=== PATIENT | male | born 1960 ===

== ENCOUNTER 2023-11-15 12:59 | Emergency (ER) | payer MEDICAID, SELFPAY ==
--- NOTE | ~2023-11-15 | CT_ITS ---
EXAMINATION: CT ANGIOGRAM CHEST CLINICAL INFORMATION: Interscapular pain. Status post TOF. COMPARISON: None available. TECHNIQUE: Multiple axial images were obtained through the chest after the administration of 50 mL of Omnipaque 350 intravenous contrast. Extensive vascular post-processing including two-dimensional and three-dimensional reformatted images were created and reviewed on an independent workstation. This CT examination was performed using dose optimization techniques as appropriate, variously including the following: *Automated exposure control *Adjustment of mA and/or kV according to patient size (this includes techniques or standardized protocols for targeted exams where dose is matched to indication/reason for exam; i.e. extremities or head) *Use of iterative reconstruction technique DLP: 223 mGy-cm FINDINGS: Vascular: There is good opacification of thoracic aorta and its branches without aneurysm or dissection. The pulmonary artery is of normal caliber without focal filling defect or narrowing. There is mild coronary artery calcifications. No pericardial effusion seen. Nonvascular: Central trachea and bronchi are widely patent. Thyroid lobes are symmetrical and normal. Small shotty precarinal and pretracheal lymph nodes measure 1.4 cm in short axis on axial image 25/6. The lungs are expanded and clear acute processes. No pulmonary nodule, mass or consolidation seen. Nonspecific groundglass attenuation is seen in both lower lobes. There is no pleural effusion, thickening or calcified pleural plaques. The axilla and the chest wall is unremarkable. Visualized liver, spleen, pancreas and bilateral adrenal glands are unremarkable. Solitary radiopaque gallstone noted. No gross lytic or sclerotic process seen. CT/CT angio chest aorta IMPRESSION: No evidence of aortic aneurysm or dissection. There is a normal three-vessel branching of aortic arch No PE. Clear lungs. Nonspecific precarinal and pretracheal lymph nodes with a short axis measurement of 1.4 cm. Fleischner guidelines were followed. Electronically signed by: Ramón Vail MD 11/15/2023 08:20 PM EDT
--- NOTE | 2023-11-15 13:01 | ECG_ITS ---
Test Reason : chest pain Blood Pressure : / mmHG Vent. Rate : 065 BPM Atrial Rate : 065 BPM P-R Int : 166 ms QRS Dur : 080 ms QT Int : 392 ms P-R-T Axes : -01 055 050 degrees QTc Int : 407 ms Normal sinus rhythm Nonspecific T wave abnormality Abnormal ECG No previous ECGs available Referred By: Generic ED Physician Electronically Signed By:DIAMOND MCDONALD
--- NOTE | 2023-11-15 13:01 | ED_ITS ---
HPI - General Adult General Chief complaint: Chest Pain Stated complaint: Chest pain/Back pain/SOB Time Seen by Provider: 11/15/23 16:36 Source: patient Mode of arrival: ambulatory Limitations: no limitations History of Present Illness ED Provider: yuni RENDON narrative: Patient is 63 years old with history of cardiac surgery at age of 8? Tetralogy of Fallot complaining of sharp pain interscapular area since last night mostly on the left side gets worse on palpation and movement of the left arm and taking deep breath patient has had similar pain for 2 days about 3 months ago does have occasional cough no fever no chills no syncope no palpitation Related Data Previous Rx's ?Medication ?Instructions ?Recorded cyclobenzaprine 10 mg tablet 10 mg PO Q8H #20 tabs 11/15/23 ibuprofen 600 mg tablet 600 mg PO Q6H PRN fever or pain 11/15/23 #30 tabs Allergies Allergy/AdvReac Type Severity Reaction Status Date / Time No Known Allergies Allergy Verified 11/15/23 13:07 Review of Systems 2 Review of Systems: Yes all other systems are reviewed and are negative [facility] Social History Social History Alcohol intake: current Alcohol intake frequency: holidays/special occasions only Smoked in Last 30 Days: Yes Use of substances other than those prescribed or required for medical reasons: No Advance Directives: No Advance Directives Information Provided: Yes Do you have a plan to hurt others: No Plan Physical Exam ED Vital Signs: Vital Signs - 24 hr 11/15/23 13:06 11/15/23 16:19 11/15/23 17:41 Temperature 98.5 F 98.2 F 97.9 F Pulse Rate 69 55 54 Respiratory Rate 18 18 16 Blood Pressure 121/73 150/94 H 142/91 H Pulse Oximetry 96 99 94 Oxygen Delivery Method Room Air Room Air Room Air 11/15/23 19:44 Temperature 98.3 F Pulse Rate 56 Respiratory Rate 18 Blood Pressure 145/78 H Pulse Oximetry 97 Oxygen Delivery Method Room Air BMI result Body Mass Index 20.9 Appearance: Alert. Oriented X3. No acute distress. Eyes: PERRLA, No Nystagmus ENT: Pharynx normal. Oral Mucosa moist Neck: Normal inspection. Neck supple. CVS: Normal heart rate and rhythm. Pulses normal. Tenderness left trapezius muscle area gets worse on left arm movements no bruits Respiratory: No respiratory distress. Equal air entry bilateral, no wheezing/rales/rhonchi Abdomen: Soft and nontender. Bowel sounds are present, no mass palpable, no CVA tenderness Skin: Skin warm and dry. Normal skin color. Normal skin turgor. Extremities: No lower extremity edema. No calf tenderness Neuro: Oriented X 3. No motor deficit. No sensory deficit.No cerebellar signs , cranial nerves II-XII intact Course Course Course Narrative: This is an RME done by NICK Maurice: Additional HPI, ROS, PE not included below will be deferred to primary provider. 63 year old male presenting with chest pain that began last night with a/c back pain. Recently he was working on a vehicle and he pulled a muscle in his back, pt thinks he may have reaggravated this injury last night. He has a history of heart surgery. Denies nausea, vomiting, fever, chills. Plan - EKG, labs Appearance: Alert.? Oriented X3.? No acute cardiopulmonary distress distress.? Head: Normocephalic, atraumatic, no step-offs or deformities Neck: Normal inspection.? Neck supple.? CVS: Pulses normal.? Respiratory: No respiratory distress.? Abdomen: Soft and nontender.? Skin: ? Normal skin color. Extremities: 5/5 strength to bilateral upper and lower extremities Neuro: Oriented X 3.? No motor deficit.? No sensory deficit. Medications Administered Discontinued Medications Generic Name Dose Route Start Last Admin Trade Name Luis Aq PRN Reason Stop Dose Admin Iohexol 100 ml 11/15/23 18:01 11/15/23 18:01 Iohexol 350 Mg/Ml 100 Ml Infus..Btl IV 11/15/23 18:02 70 ml ONCE ONE Administration Morphine Sulfate 4 mg 11/15/23 17:03 11/15/23 17:10 Morphine Sulfate 4 Mg/Ml Cartridge IVPUSH 11/15/23 17:04 4 mg ONCE ONE Administration Protocol Ondansetron HCl 4 mg 11/15/23 17:03 11/15/23 17:09 Ondansetron Hcl 4 Mg/2 Ml Vial IVPUSH 11/15/23 17:04 4 mg ONCE ONE Administration Medical Decision Making Medical Decision Making MDM Narrative: Patient with muscular pain left trapezius area off and on gets worse on palpation and movement CTA negative for aortic dissection/PE discharge patient home on ibuprofen and Flexeril Differential Diagnosis Differential Diagnoses: The differential diagnosis associated with the presentation includes Resection of the aorta/PE/musculoskeletal/pneumothorax Lab Data MDM Lab Attestation statement: I reviewed the patient's lab results. 11/15/23 13:13 11/15/23 13:13 Labs: Lab Results 11/15/23 11/15/23 Range/Units 13:13 16:21 WBC 12.4 H (4.8-10.8) X10*3/uL RBC 4.58 L (4.60-5.80) X10*6/uL Hgb 15.2 (14.0-18.0) g/dl Hct 44.4 (42.0-52.0) % MCV 96.9 (80.0-98.0) fL MCH 33.2 H (27.0-33.0) pg MCHC 34.2 (31.0-36.0) g/dl RDW 12.2 (11.0-16.0) % Plt Count 264 (160-400) X10*3/uL MPV 9.4 (9.4-12.4) fL Immature Gran % (Auto) 0.6 H (0.0-0.4) % Neut % (Auto) 68.2 (45-73) % Lymph % (Auto) 21.6 (20-40) % [place] % (Auto) 9.1 (2-11) % Eos % (Auto) 0.2 (0-4) % Baso % (Auto) 0.3 (0-2) % Lymph # (Auto) 2.7 (1.2-4.9) X10*3/uL [place] # (Auto) 1.1 (0.1-1.2) X10*3/uL Eos # (Auto) 0.0 (0.0-0.4) X10*3/uL Baso # (Auto) 0.0 (0.0-0.2) X10*3/uL Abs Immat Gran (auto) 0.07 H (0.00-0.03) X10*3/uL Absolute Neuts (auto) 8.4 H (2.0-8.3) x10*3/uL Absolute Nucleated RBC 0.000 (0.0-0.012) X10*3/uL Nucleated RBC % (auto) 0.0 (0.0-0.2) /100WBC PT 11.8 (11.1-13.3) SEC INR 1.0 (0.9-1.1) Sodium 136 (135-145) mmol/L Potassium 3.9 (3.3-5.1) mmol/L Chloride 106 (96-108) mmol/L Carbon Dioxide 24 (22-29) mmol/L Anion Gap 10 L (12-20) BUN 11 (9-16) mg/dL Creatinine 0.86 (0.5-1.4) mg/dL Estim Creat Clear Calc 74.0 Estimated GFR > 60 Random Glucose 102 (60-115) mg/dL Calcium 9.4 (8.4-10.2) mg/dL Total Bilirubin 0.7 (0.0-1.0) mg/dL AST 22 (5-37) U/L ALT 15 (0-40) U/L Alkaline Phosphatase 78 (39-117) U/L Troponin I High Sens < 2.7 (<3.5-35.0) ng/L Total Protein 8.1 H (6.5-8.0) g/dL Albumin 3.9 (3.5-5.0) g/dL Urine Color Yellow Urine Appearance Clear Urine pH 6.5 (5.0-9.0) Ur Specific [place] 1.020 (1.005-1.025) Urine Protein Trace (Neg-Trace) mg/dL Urine Glucose (UA) Negative (Negative) mg/dL Urine Ketones Negative (Negative) mg/dL Urine Blood Trace H (Negative) Urine Nitrite Negative (Negative) Ur Leukocyte Esterase Trace H (Negative) Urine RBC 6-10 H (0-2) /HPF Urine WBC 0-5 (0-5) /HPF Ur Squamous Epith Cells 0-2 (0-2) /HPF Urine Bacteria None Seen (None Seen) Hyaline Casts 0-2 (0-2) /LPF Independent Interpretation I performed an independent interpretation of an: EKG and CT Scan Interpretation: Normal sinus rhythm heart rate 65 beats per minute normal interval normal axis no acute ST T wave changes no acute ischemia Radiology Impression Discussion of test interpretation with radiology: I have reviewed the radiologist's reading. Radiologist Impression: CTA chest negative for dissection or PE Discharge Plan Discharge Clinical Impression: Muscle strain of left upper back Patient Disposition: Home, Self-Care Instructions: Thoracic Back Strain (ED) Additional Instructions: Your blood and CT scan negative for any major cardiac issues Pain in the upper back is likely musculoskeletal Take pain medication muscle relaxant as prescribed Follow with PCP Prescriptions: New cyclobenzaprine 10 mg tablet 10 mg PO Q8H Qty: 20 0RF ibuprofen 600 mg tablet 600 mg PO Q6H PRN (Reason: fever or pain) Qty: 30 0RF Print Language: Mauritanian
[2023-11-15 13:06] VITALS: BP 121/73; PULSE 69; RESP 18; TEMP 36.9; O2SAT 96; BMI 20.9
[2023-11-15 13:17] LABS: MANUAL DIFF FLAG NO
[2023-11-15 13:22] LABS: Basophils Percent Auto 0.3 % (0-2); Eosinophils Percent Auto 0.2 % (0-4); Hematocrit 44.4 % (42.0-52.0); Hemoglobin 15.2 g/dl (14.0-18.0); Imm Gran Abs Auto 0.07 X10*3/uL (0.00-0.03); Imm Gran Pct Auto 0.6 % (0.0-0.4); Lymphocytes Absolute Auto 2.7 X10*3/uL (1.2-4.9); Lymphocytes Percent Auto 21.6 % (20-40); Mean Corpuscular HGB Conc 34.2 g/dl (31.0-36.0); Mean Corpuscular Hemoglobin 33.2 pg (27.0-33.0); Mean Corpuscular Volume 96.9 fL (80.0-98.0); Mean Platelet Volume 9.4 fL (9.4-12.4); Monocytes Absolute Auto 1.1 X10*3/uL (0.1-1.2); Monocytes Percent Auto 9.1 % (2-11); Neutrophils Absolute Auto 8.4 x10*3/uL (2.0-8.3); Neutrophils Percent Auto 68.2 % (45-73); Platelet Count 264 X10*3/uL (160-400); Red Blood Count 4.58 X10*6/uL (4.60-5.80); Red Cell Distribution Width 12.2 % (11.0-16.0); White Blood Count 12.4 X10*3/uL (4.8-10.8)
[2023-11-15 13:24] LABS: Prothrombin Time 11.8 SEC (11.1-13.3)
[2023-11-15 13:34] LABS: Alanine Aminotransferase 15 U/L (0-40); Albumin Level 3.9 g/dL (3.5-5.0); Alkaline Phosphatase 78 U/L (39-117); Anion Gap 10 (12-20); Aspartate Amino Transferase 22 U/L (5-37); Bilirubin Total 0.7 mg/dL (0.0-1.0); Blood Urea Nitrogen 11 mg/dL (9-16); Calcium 9.4 mg/dL (8.4-10.2); Carbon Dioxide 24 mmol/L (22-29); Chloride 106 mmol/L (96-108); Estimated Glomerular Filt Rate > 60; Glucose Random 102 mg/dL (60-115); Potassium 3.9 mmol/L (3.3-5.1); Sodium 136 mmol/L (135-145); Total Protein 8.1 g/dL (6.5-8.0)
[2023-11-15 13:43] LABS: Troponin-I High Sensitivity < 2.7 ng/L (<3.5-35.0)
[2023-11-15 16:19] VITALS: BP 150/94; PULSE 55; RESP 18; TEMP 36.8; O2SAT 99
[2023-11-15 16:27] LABS: Appearance Urine Clear; Color Urine Yellow; Glucose Urine UA Negative (Negative); Leukocyte Esterase Urine Trace (Negative); Nitrite Urine Negative (Negative); PH 6.5 (5.0-9.0); UMIC TRIGGER UACC YES; Urine Blood Trace (Negative); Urine Ketones Negative (Negative); Urine Protein Trace mg/dL (Neg-Trace)
--- NOTE | 2023-11-15 16:30 | PC.NURSE ---
a&ox4. vss and up to date. nsr on the director video. pt presents to the ED w/ left sided chest pain radiating to left ribcage into upper back x last night. pt also endorsing associated sob. pt verbalizes lifting heavy tire last night when he thinks he pulled a muscle. reports pain increases w/ deep inspiration and any movement. no sob/wob noted. respirations even/unlabored. lung sounds CTA. 20gIV placed in the left forearm. plan of care ongoing. call hamm placed within reach.
[2023-11-15 16:33] LABS: Bacteria Urine None Seen (None Seen); Hyaline Casts Urine 0-2 /LPF (0-2); Squamous Epithelial Cell Urine 0-2 /HPF (0-2); WBC Urine 0-5 /HPF (0-5)
[2023-11-15] MEDS: ondansetron HCL 4 MG/2 ML VIAL IVPUSH (17:09)
[2023-11-15] MEDS: Morphine Sulfate 4 MG/ML CARTRIDGE IVPUSH (17:10)
--- NOTE | 2023-11-15 17:15 | PC.NURSE ---
medication administered per provider order. effectiveness pending. pt waiting to go to CT at this time. plan of care ongoing.
[2023-11-15 17:41] VITALS: BP 142/91; PULSE 54; RESP 16; TEMP 36.6; O2SAT 94
--- NOTE | 2023-11-15 17:50 | PC.NURSE ---
pt to CT at this time.
[2023-11-15] MEDS: iohexoL 350 MG/ML 100 ML INFUS..BTL IV (18:01)
[2023-11-15 19:44] VITALS: BP 145/78; PULSE 56; RESP 18; TEMP 36.8; O2SAT 97
--- NOTE | 2023-11-15 20:45 | MHC.EDTECH ---
FAMILY MEMBER JAMAAL URIAS TOOK PATIENTS TWO NECKLACES AND 3 CHARNY HOME
[2023-11-15 20:50] VITALS: BP 126/76; PULSE 59; RESP 16; TEMP 36.8; O2SAT 99
== END 2023-11-15 20:51 | disposition home or self-care (01) ==
PROVIDERS: Physician Assistant; Emergency Provider Internal Medicine
DX: S39.012A Strain of muscle, fascia and tendon of lower back, initial encounter (principal); R07.89 Other chest pain; M79.602 Pain in left arm; X58.XXXA Exposure to other specified factors, initial encounter; Y93.89 Activity, other specified; Y92.89 Other specified places as the place of occurrence of the external cause; Y99.8 Other external cause status; Z79.899 Other long term (current) drug therapy
CPT/HCPCS: 36415; 71275; 80053; 81001; 84484; 85025; 85610; 93005; 96374; 96375; 99284; 99285; J2270; J2405; Q9967